=== PATIENT | male | born 1955 | race Asian ===

== ENCOUNTER 2020-03-26 20:30 | Emergency (ER) | payer OTHER, SELFPAY ==
--- NOTE | 2020-03-26 | XR_ITS ---
EXAMINATION: LEFT HAND AND WRIST CLINICAL INFORMATION: Fall with pain COMPARISON: None TECHNIQUE: 3 views left hand and wrist FINDINGS: No acute fracture is seen. A small osteophyte/exostosis is seen arising from the ulnar aspect of the lunate seen on the oblique projection. No significant soft tissue swelling is seen. XR/XR hand wrist LT IMPRESSION: No acute finding.
[2020-03-26 21:47] VITALS: BP 132/74; PULSE 60; RESP 16; TEMP 37; O2SAT 99; BMI 24.0
[2020-03-27 00:53] VITALS: BP 131/70; PULSE 56; RESP 16; TEMP 36.2; O2SAT 98
[2020-03-27 02:00] VITALS: RESP 15
--- NOTE | 2020-03-27 02:46 | ED_ITS ---
HPI - Extremity Problem General Chief complaint: Extremity Injury, Upper Stated complaint: Fall/Hand pain Time Seen by Provider: 03/27/20 01:27 Source: patient Mode of arrival: ambulatory Limitations: no limitations History of Present Illness HPI Narrative: Patient comes emergency room complaining of left wrist pain. Patient states earlier yesterday he was running, fell to an outstretched hand. Patient states throughout the day the pain started getting worse. Patient is able to move his hand but it hurts. No significant swelling on his arm, wrist or hand. MD Complaint: extremity pain Related Data Previous Rx's Medication Instructions Recorded ibuprofen 600 mg PO TID PRN #14 tab 03/27/20 Allergies Allergy/AdvReac Type Severity Reaction Status Date / Time No Known Allergies Allergy Verified 03/26/20 21:49 Review of Systems Review of Systems: Constitutional : No Weight loss, No Fever, No Chills, No Night Sweats, No Fatigue, No Malaise ENT/Mouth : No Hearing loss, No Ear Pain, No Nasal Congestion, No Sinus Pain, No Hoarseness, No sore throat, No Rhinorrhea, No Swallowing Difficulty Eyes: No Eye Pain, No Swelling, No Redness, No Foreign Body, No Discharge, No Vision Changes Cardiovascular : No Chest Pain, No SOB, No Dyspnea on Exertion, No Orthopnea, No Edema, No Palpitations Respiratory : No Cough, No Sputum, No Wheezing, No Smoke Exposure, No Dyspnea Gastrointestinal : No Nausea, No Vomiting, No Diarrhea, No Constipation, No abdominal Pain, No Hematochezia, No Melena Genitourinary : no irregular bleeding, No Dysuria, No Urinary Frequency, No Hematuria, No Urinary Incontinence, No Urgency, No Flank Pain, No Urinary Flow Changes, No Hesitancy Musculoskeletal : Complaining of left wrist pain, No Myalgias, No Joint Swelling Skin : No Skin Lesions, No rash Neuro : No Weakness, No Numbness, No Paresthesias, No Loss of Consciousness, No Dizziness, No Headache Psych : No Anxiety/Panic, No Depression, No SI/HI/AH/VH, No Social Issues, Heme/Lymph: No Bruising, No Bleeding,No Lymphadenopathy Endocrine : No Polyuria, No Polydipsia, No Temperature Intolerance COUNT INCLUDES THE [facility] Past Medical History Medical History (Updated 03/27/20 @ 02:51 by Cyn Rodriguez MD) No known health problems Social History Social History Advance Directives: No Physical Exam Vital Signs: Vital Signs: Last Vital Signs Temp 97.1 F 03/27/20 00:53 Pulse 56 03/27/20 00:53 Resp 16 03/27/20 00:53 BP 131/70 03/27/20 00:53 Pulse Ox 98 03/27/20 00:53 Body Mass Index 24.0 Appearance: Alert. Oriented X3. No acute distress. Eyes: Pupils equal, round and reactive to light. ENT: Pharynx normal. Neck: Normal inspection. Neck supple. No lymph nodes noted. No crepitus CVS: Normal heart rate and rhythm. Pulses normal. Normal S1 and S2 Respiratory: No respiratory distress. Breath sounds normal. No Wheezing. No rales Abdomen: Soft and nontender. No rigidity. No distention. good BS x4 Skin: Skin warm and dry. Normal skin color. Normal skin turgor. Extremities: No lower extremity edema. No edema over wrist, no gross deformity. No rash. Very mild discomfort with flexion and extension, patient is able to oppose fingers, no snuffbox tenderness, no palmar pain to palpation. Neuro: Oriented X 3. No motor deficit. No sensory deficit. Moving all extermities. No slurred speech. Course Course Course Narrative: I discussed the x-ray with the patient, no acute fracture. I discussed with the patient that he may need to be x-rayed again within a week, has some minor fractures do not appear on the 1st x-ray. MDM - Extremity (Nontraumatic) Imaging Data Wrist x-ray: Radiologist's impression: No acute fracture is seen. A small osteophyte/exostosis is seen arising from the ulnar aspect of the lunate seen on the oblique projection. No significant soft tissue swelling is seen. XR/XR hand wrist LT IMPRESSION: No acute finding. Discharge Plan Discharge Clinical Impression: Sprain and strain of wrist Patient Disposition: Home, Self-Care Instructions: Wrist Sprain (ED) Additional Instructions: Please follow-up with your primary care physician tomorrow. If you have any worsening or new symptoms, please return to the emergency room or call 911 Prescriptions: New ibuprofen 600 mg tablet 600 mg PO TID PRN (Reason: pain) Qty: 14 RF: 0
[2020-03-27] MEDS: Ibuprofen 600 MG TABLET PO (03:00)
== END 2020-03-27 03:10 | disposition home or self-care (01) ==
PROVIDERS: Emergency Provider Emergency Medicine
DX: S63.502A Unspecified sprain of left wrist, initial encounter (principal); S66.912A Strain of unspecified muscle, fascia and tendon at wrist and hand level, left hand, initial encounter; W01.0XXA Fall on same level from slipping, tripping and stumbling without subsequent striking against object, initial encounter; Y93.02 Activity, running; Y92.480 Sidewalk as the place of occurrence of the external cause; Y99.9 Unspecified external cause status
CPT/HCPCS: 73110; 73130; 99283; 99284